=== PATIENT | female | born 1955 | race Caucasian/White ===

== ENCOUNTER → 2016-12-27 | Outpatient (CLI) | payer BC ==
[~2016-12-27] MED LIST: LIVALO4 MG PO; LOZOL 2.5M2.5 MG/TAB PO; PRIL40 PO; TENORMIN 2525 MG/TAB PO
== END ==
LOC: MC.RAD 07:00
DX: Z12.31 Encounter for screening mammogram for malignant neoplasm of breast (principal)

== ENCOUNTER → 2018-01-10 | Outpatient (CLI) | payer BC | LOC: MC.RAD 06:54 | DX: Z12.31 Encounter for screening mammogram for malignant neoplasm of breast (principal) ==

== ENCOUNTER → 2019-04-02 | Outpatient (CLI) | payer BC | LOC: MC.RAD 07:13 | DX: Z12.31 Encounter for screening mammogram for malignant neoplasm of breast (principal) ==

== ENCOUNTER 2019-08-11 07:03 | Day surgery (SDC) | payer BC ==
[~2019-08-11] VITALS: Ht 170.2 cm; Wt 71.0 kg
[~2019-08-11 07:03] MED LIST changes: -LOZOL 2.5M2.5 MG/TAB PO; +LOZOL1.25 MG PO
[2019-08-11] MEDS ORDERED: QUESTRAN4 GM/9 GM PO (07:22)
[2019-08-11 07:49] VITALS: BP 134/79; PULSE 69; TEMP 98.2
[2019-08-11 09:05] VITALS: BP 129/80; PULSE 75; TEMP 97.9
--- NOTE | 2019-08-11 09:05 | NUR ---
Patient arrives to [facility] bay [facility] via cart, accompanied by endo RN Yuliana. She is alert, sitting up in bed. She ambulates with standby assist to the chair in her room. Monitoring is applied - VSS and WNL on room air. Her spouse is at the bedside. She denies any pain or nausea. She is offered and receives water and crackers to eat. Call light in reach.
[2019-08-11 09:20] VITALS: BP 101/70; PULSE 59
--- NOTE | 2019-08-11 09:20 | NUR ---
Patient is resting comfortably in her room. She denies any pain, nausea, or need.
[2019-08-11 09:35] VITALS: BP 116/72; PULSE 59
--- NOTE | 2019-08-11 09:35 | NUR ---
VSS and WNL on room air. Patient denies any pain, nausea, or need.
--- NOTE | 2019-08-11 09:50 | NUR ---
0940 Dr. Mata at the bedside, speaks with patient and her spouse. 0950 Discharge criteria has been met. Discharge instructions discussed with the patient. She denies any questions and verbalizes understanding. PIV removed with catheter intact and hemostasis achieved. She changes to her clothing independently. She is escorted to the exit via wheelchair by staff. Discharged to home with ride in private vehicle at 0950.
== END 2019-08-11 09:50 | disposition home or self-care (01) ==
LOC: SDCO 07:03
DX: Z12.11 Encounter for screening for malignant neoplasm of colon (principal); K57.30 Diverticulosis of large intestine without perforation or abscess without bleeding; K64.0 First degree hemorrhoids; I10 Essential (primary) hypertension; Z79.899 Other long term (current) drug therapy
CPT/HCPCS: J2250; J2405; J3010; J7030

== ENCOUNTER → 2020-04-04 | Outpatient (CLI) | payer BC ==
[~2020-04-04] MED LIST changes: +QUESTRAN4 GM/9 GM PO
== END ==
LOC: MC.RAD 07:00
DX: Z12.31 Encounter for screening mammogram for malignant neoplasm of breast (principal)

== ENCOUNTER 2020-10-24 13:26 | Emergency (ER) | payer BC ==
[~2020-10-24] VITALS: Ht 172.7 cm; Wt 71.8 kg
[2020-10-24 13:40] VITALS: TEMP 96.9
[2020-10-24 14:15] LABS: BASO # 0.1 (0.0-0.2); BASO % 0.6 % (0.0-2.0); EOS % 0.3 % (0-4.0); GRAN # 7.8 (1.4-6.5); GRAN % 72.2 % (42.2-75.2); HEMATOCRIT 45.2 % (37.0-47.0); HEMOGLOBIN 14.9 g/dl (12.5-16.0); LYMPH # 2.2 (1.2-3.4); LYMPH % 20.4 % (20.0-51.0); MEAN CELL VOLUME 88 fl (80.0-100.0); MEAN CORPUSCULAR HEMOGLOBIN 29 pg (27.0-31.0); MEAN CORPUSCULAR HGB CONC 33 g/dl (33.0-37.0); MEAN PLATELET VOLUME 10.1 fl (7.4-10.4); MONO # 0.7 (0.1-0.6); MONO % 6.1 % (1.7-9.3); PLATELET COUNT 258 K/mm3 (130-400); RED BLOOD COUNT 5.13 M/mm3 (4.10-5.30); REDCELL DISTRIBUTION WIDTH-CV 12.2 % (11.5-14.5)
[2020-10-24 14:21] LABS: ALANINE AMINOTRANSFERASE 26 U/L (4-34); ALBUMIN 4.4 gm/dL (3.5-5.0); ALKALINE PHOSPHATASE 117 U/L (50-136); ANION GAP 10 mmol/L (7-16); AST,SGOT 30 U/L (15-37); BILIRUBIN,TOTAL 0.3 mg/dL (0.0-1.0); BLOOD UREA NITROGEN 20 mg/dL (7-17); CALCIUM 9.5 mg/dL (8.4-10.2); CARBON DIOXIDE 24 mmol/L (22-30); CHLORIDE 104 mmol/L (98-107); CREATININE, serum 0.72 (0.52-1.25); GLUCOSE 127 mg/dL (74-106); MAGNESIUM 2.2 mg/dL (1.6-2.3); SODIUM 138 mmol/L (137-145); TOTAL PROTEIN 8.1 gm/dL (6.4-8.2)
[2020-10-24 14:34] LABS: TROPONIN-I < 0.012 ng/mL (0.000-0.035)
[2020-10-24] MEDS ORDERED: ASPIRIN 81M81 MG/TA2 PO (17:27)
[2020-10-24 18:05] VITALS: BP 115/72; PULSE 81
== END 2020-10-24 18:06 | disposition home or self-care (01) ==
LOC: COL.ER 13:26
PROVIDERS: Emergency Medicine
DX: I48.91 Unspecified atrial fibrillation (principal); E87.6 Hypokalemia; Z86.718 Personal history of other venous thrombosis and embolism; Z79.82 Long term (current) use of aspirin
CPT/HCPCS: J3475; J7030; Q9967

== ENCOUNTER → 2021-04-18 | Outpatient (CLI) | payer BC ==
[~2021-04-18] MED LIST changes: +ASPIRIN 81M81 MG/TA2 PO
== END ==
LOC: MC.RAD 08:30
DX: Z12.31 Encounter for screening mammogram for malignant neoplasm of breast (principal)

== ENCOUNTER 2022-01-17 17:41 | Emergency (ER) | payer MEDICARE, BC ==
[~2022-01-17] VITALS: Ht 172.7 cm; Wt 68.2 kg
[2022-01-17 17:47] VITALS: TEMP 98
[2022-01-17 18:19] LABS: BASO % 0.6 % (0.0-2.0); EOS # 0.1 K/mm3 (0.0-0.7); EOS % 1.2 % (0.0-4.0); GRAN # 2.7 K/mm3 (1.4-6.5); GRAN % 52.8 % (42.2-75.2); LYMPH # 1.7 K/mm3 (1.2-3.4); LYMPH % 32.5 % (20.0-51.0); MEAN CELL VOLUME 85 fl (80.0-100.0); MEAN CORPUSCULAR HEMOGLOBIN 29 pg (27-31); MEAN CORPUSCULAR HGB CONC 34 g/dl (33.0-37.0); MEAN PLATELET VOLUME 10.2 fl (7.4-10.4); MONO # 0.6 K/mm3 (0.1-0.6); MONO % 12.5 % (1.7-9.3); PLATELET COUNT 183 K/mm3 (130-400); RED BLOOD COUNT 4.85 M/mm3 (4.10-5.30); REDCELL DISTRIBUTION WIDTH-CV 12.3 % (11.5-14.5)
[2022-01-17 18:40] LABS: ALANINE AMINOTRANSFERASE 59 U/L (0-55); ALBUMIN 3.8 gm/dL (3.4-4.8); ALKALINE PHOSPHATASE 115 U/L (40-150); ANION GAP 15 mmol/L (7-16); AST,SGOT 48 U/L (5-34); BILIRUBIN,TOTAL 0.4 mg/dL (0.2-1.2); BLOOD UREA NITROGEN 26 mg/dL (10-20); C-REACTIVE PROTEIN 1.71 mg/dL (0.00-0.50); CALCIUM 9.3 mg/dL (8.4-10.2); CARBON DIOXIDE 22 mmol/L (23-31); CHLORIDE 102 mmol/L (98-107); CREATININE, serum 0.78 mg/dL (0.57-1.11); GLUCOSE 108 mg/dL (70-99); POTASSIUM 3.5 mmol/L (3.5-4.5); SODIUM 139 mmol/L (136-145); TOTAL PROTEIN 7.3 gm/dL (6.2-8.1)
[2022-01-17 18:46] LABS: TROPONIN-I < 0.010 ng/mL (0.00-0.033)
[2022-01-17 21:35] VITALS: BP 136/95; PULSE 81
== END 2022-01-17 21:35 | disposition home or self-care (01) ==
LOC: COL.ER 17:41
PROVIDERS: Nurse Practitioner
DX: R00.2 Palpitations (principal); Z95.818 Presence of other cardiac implants and grafts; Z86.16 Personal history of COVID-19
CPT/HCPCS: Q9967

== ENCOUNTER → 2023-04-30 | Outpatient (CLI) | payer MEDICARE, BC | LOC: CANSCHCLI → MC.RAD 08:15 | DX: Z12.31 Encounter for screening mammogram for malignant neoplasm of breast (principal) ==

== ENCOUNTER → 2024-05-11 | Outpatient (CLI) | payer MEDICARE, BC | LOC: MC.RAD 08:45 | DX: Z12.31 Encounter for screening mammogram for malignant neoplasm of breast (principal) ==